=== PATIENT | female | born 1975 | race Caucasian/White ===

== ENCOUNTER 2017-04-24 00:49 | Emergency (ER) ==
[2017-04-24 00:56] VITALS: BP 136/82; TEMP 98.3; BMI 22.1
[2017-04-24 01:32] LABS: BASOPHILS # (AUTO) 0.1 K/uL (0-0.2); BASOPHILS % (AUTO) 0.9 % (0.0-3.0); EOSINOPHILS # (AUTO) 0.1 K/ul (0.0-0.7); EOSINOPHILS % (AUTO) 1.3 % (0.0-7.0); HEMATOCRIT 39.4 % (37.0-47.0); HEMOGLOBIN 14.3 g/dl (12.0-16.0); IMMATURE GRANULOCYTE % (AUTO) 0.4 % (0.0-5.0); LYMPHOCYTES # (AUTO) 3.6 K/uL (0.60-3.4); LYMPHOCYTES % (AUTO) 36.4 (10.0-50.0); MEAN CORPUSCULAR HEMOGLOBIN 31.7 pg (27.0-31.0); MEAN CORPUSCULAR HGB CONC 36.3 (31.8-35.4); MEAN CORPUSCULAR VOLUME 87.4 fl (81.0-99.0); MONOCYTES # (AUTO) 0.7 K/uL (0.4-2.0); MONOCYTES % (AUTO) 7.5 (0-10); NEUTROPHILS # (AUTO) 5.3 K/ul (2.0-6.9); NEUTROPHILS % (AUTO) 53.5; PLATELET COUNT 226 10^3/uL (140-440); RED BLOOD COUNT 4.51 10^6/ul (4.20-5.40); WHITE BLOOD COUNT 9.84 K/ul (4.6-10.2)
[2017-04-24 01:55] LABS: ACETAMINOPHEN 9 ug/ml (10-30); ALANINE AMINOTRANSFERASE 11 U/L (12-78); ALBUMIN 4.1 g/dL (3.4-5.0); ALBUMIN/GLOBULIN RATIO 1.28; ALKALINE PHOSPHATASE 83 U/L (42-98); ANION GAP 13.1; ASPARTATE AMINO TRANSFERASE 12 U/L (15-37); BILIRUBIN,TOTAL 0.27 mg/dL (0.00-1.20); BLOOD UREA NITROGEN 6 mg/dL (7-18); BUN/CREATININE RATIO 6.25; CALCIUM 9.5 mg/dL (8.2-10.2); CARBON DIOXIDE 27 mmol/L (21-32); CHLORIDE 100 mmol/L (98-107); CREATININE 0.96 mg/dL (0.60-1.30); GLUCOSE 109 mg/dL (70-110); POTASSIUM 3.1 mmol/L (3.5-5.10); SALICYLATE < 5.0 mg/dL (2.8-20.0); SODIUM 137 mmol/L (136-145); TOTAL PROTEIN 7.3 g/dL (6.4-8.2)
[2017-04-24] MEDS ORDERED: K-DUR PO STA (04:28)
--- NOTE | 2017-04-24 04:28 | ED.PDOC ---
General ED Provider: Dr. MARLIN MCNEIL-ER Chief Complaint: Psychiatric Complaint Stated Complaint: im stressed Time Seen by Physician: 00:55 Mode of Arrival: Walk-In Information Source: Patient, Family Exam Limitations: No limitations Primary Care Provider: ISABELLA LEAHY Nursing and Triage Documentation Reviewed and Agree: Yes Psychological Complaint Exam - Psychiatric Complaint/Exam Patient Complains Of: Present: Depression Onset/Duration: afew days Symptoms Are: Still present Timing: Constant Initial Severity: Mild Current Severity: Mild Character: Present: Depressed, Anxious, Angry, Frustrated Aggravating: Reports: Recent stress Associated Signs And Symptoms: Reports: Sleep disturbance. Denies: Appetite change Related History: Denies: Suicidal thoughts, Suicidal plan, Suicidal gestures, Homicidal thoughts, Homicidal plan Completed Suicide Risk Factors: Patient In Custody Of Police: No Social Withdrawal Present: No Social Isolation Present: No Prior Suicide Attempt: No Injury From Prior Suicide Attempt: No Related Surgical History: Reports: None Patient Uncooperative For Exam: No Mood: Present: Depressed, Angry, Anxious Appearance: Present: Clean Thought Process: Present: Logical Insight: Present: Good Memory: Intact Judgement: Normal Danger To Others: No Patient Medically Stable For: Psych evaluation Differential Diagnoses: Anxiety, Depression Review of Systems - Review Of Systems Constitutional: Reports: No symptoms Eyes: Reports: No symptoms Ears, Nose, Mouth, Throat: Reports: No symptoms Respiratory: Reports: No symptoms Cardiac: Reports: No symptoms GI: Reports: No symptoms : Reports: No symptoms Musculoskeletal: Reports: No symptoms Skin: Reports: No symptoms Neurological: Reports: Anxiety, Depressed, Emotional problems Endocrine: Reports: No symptoms Hematologic/Lymphatic: Reports: No symptoms All Other Systems: Reviewed and Negative Past Medical History - Past Medical History Previously Healthy: Yes Endocrine: Reports: Unknown Cardiovascular: Reports: Unknown Respiratory: Reports: Unknown Hematological: Reports: Unknown Gastrointestinal: Reports: Unknown Genitourinary: Reports: Unknown Neuro/Psych: Reports: Unknown Musculoskeletal: Reports: Unknown Cancer: Reports: Unknown Last Menstrual Period: CURRENT - Surgical History General Surgical History: Reports: Unknown - Family History Family History: Reports: Unknown - Social History Smoking Status: Current every day smoker, Heavy tobacco smoker Hx Substance Use: No Alcohol Screening: Occasionally - Immunizations Tetanus Shot up to Date: Yes Physical Exam - Physical Exam Appearance: Well-appearing, No pain distress, Well-nourished Eyes: PANFILO, EOMI, Conjunctiva clear ENT: Ears normal, Nose normal, Oropharynx normal Neck: Supple Respiratory: Airway patent, Breath sounds clear, Breath sounds equal, Respirations nonlabored Cardiovascular: RRR, Pulses normal, No rub, No murmur GI/: Soft Musculoskeletal: Normal strength Skin: Warm, Dry, Normal color Neurological: Alert, Oriented Psychiatric: Affect appropriate, Mood appropriate, Anxious, Depressed Critical Care Note - Critical Care Note Total Time (mins): 0 Course - Course Hematology/Chemistry: 04/24/17 01:29 04/24/17 01:29 Orders, Labs, Meds: Lab Review 04/24/17 04/24/17 04/24/17 01 01:29 01:29 WBC 9.84 RBC 4.51 Hgb 14.3 Hct 39.4 MCV 87.4 MCH 31.7 H MCHC 36.3 H RDW Coeff of Hailee 11.7 Plt Count 226 Immature Gran % (Auto) 0.4 Neut % (Auto) 53.5 Lymph % (Auto) 36.4 [place] % (Auto) 7.5 Eos % (Auto) 1.3 Baso % (Auto) 0.9 Immature Gran # (Auto) 0.0 Neut # 5.3 Lymph # 3.6 H [place] # 0.7 Eos # 0.1 Baso # 0.1 Sodium 137 Potassium 3.1 L Chloride 100 Carbon Dioxide 27 Anion Gap 13.1 BUN 6 L Creatinine 0.96 Estimated GFR (MDRD) 64.00 BUN/Creatinine Ratio 6.25 Glucose 109 Calcium 9.5 Total Bilirubin 0.27 AST 12 L ALT 11 L Alkaline Phosphatase 83 Total Protein 7.3 Albumin 4.1 Globulin 3.2 Albumin/Globulin Ratio 1.28 TSH 0.845 Salicylate Level mg/dL < 5.0 Acetaminophen 9 L Plasma/Serum Alcohol < 10.0 Orders Category Date Time Status Mental Health Consult [ED MENTAL HEALTH CONSULT] .ONCE EMERGENCY 04/24/17 01: 12 Active ACETAMINOPHEN Stat LAB 04/24/17 01:29 Completed CBC W/ AUTO DIFF Stat LAB 04/24/17 01:29 Completed COMPREHENSIVE METABOLIC PANEL Stat LAB 04/24/17 01:29 Completed DRUG SCREEN, URINE, RAPID Stat LAB 04/24/17 01:10 Uncollected ETOH LEVEL [BLOOD ALCOHOL] Stat LAB 04/24/17:29 Completed SALICYLATE Stat LAB 04/24/17 01:29 Completed TSH [THYROID STIMULATING HORMONE] Stat LAB 04/24/17 01:29 Completed URINALYSIS C & S IF INDICATED Stat LAB 04/24/17 01:10 Uncollected URINE Stat LAB 04/24/17 01:12 Uncollected Potassium Chloride [K-Dur] MEDS 04/24/17 04:28 Discontinued 40 meq PO ONCE STA Medications Discontinued Medications Generic Name Dose Route Start Last Admin Trade Name Tunde PRN Reason Stop Dose Admin Potassium Chloride 40 meq 04/24/17 04:28 04/24/17 05:28 K-Dur PO 04/24/17 04:29 40 meq ONCE STA Administration i concur with mental health--she is not suicidal--) Vital Signs: Temp Pulse Resp BP Pulse Ox 04/24/17 00:50 98.3 F 95 H 18 136/82 97 Departure - Departure Time of Disposition: 05:46 Disposition: HOME SELF-CARE Discharge Problem: Depression, Hypokalemia Instructions: Hypokalemia (ED) Condition: Good Pt referred to PMD for follow-up: Yes Additional Instructions: f/u with dr leahy is a few days to have potassium rechecked Allergies/Adverse Reactions: Allergies Sulfa (Sulfonamide Antibiotics) Adverse Reaction (Verified 04/24/17 00:57) sulfamethoxazole [From Bactrim] Adverse Reaction (Verified 04/24/17 00:57) trimethoprim [From Bactrim] Adverse Reaction (Verified 04/24/17 00:57) Home Medications: Ambulatory Orders 1 [No Reported Medications] 04/24/17 Disposition Discussed With: Patient Discharge Problem: Depression Qualifiers: Depression Type: major depressive disorder Major depression recurrence: single episode Active/Remission status: remission status unspecified Qualified Code(s) : F32.9 - Major depressive disorder, single episode, unspecified
== END 2017-04-24 05:45 | disposition home or self-care (01) ==
LOC: ED 00:49
DX: F32.9 Major depressive disorder, single episode, unspecified (principal); E87.6 Hypokalemia; F17.210 Nicotine dependence, cigarettes, uncomplicated
CPT/HCPCS: 36415; 80053; 80307; 84443; 85025; 99284

== ENCOUNTER 2017-06-12 16:36 | Emergency (ER) ==
[2017-06-12 16:37] VITALS: BMI 22.1
[2017-06-12 16:43] VITALS: TEMP 98.2
--- NOTE | 2017-06-12 18:59 | DI ---
EXAM: Chest, two views, 06/12/2017 HISTORY: Cough COMPARISON: 01/17/2012 FINDINGS / IMPRESSION: Bibasilar interstitial infiltrate, left greater than right. This may represe nt combination of atelectasis and/or pneumonia. The heart size remains within normal limits. Minimal blunting of the left lateral and posterior costophrenic angle. Small pleural effusion not ex cluded.
[2017-06-12] MEDS ORDERED: DECADRON 4 MG/ML SDV IM STA (20:04)
[2017-06-12] MEDS ORDERED: TORADOL IM STA (20:04)
--- NOTE | 2017-06-12 20:07 | ED.PDOC ---
General ED Provider: Dr. LAURA WINN Chief Complaint: Shortness of Air Stated Complaint: Came for the right side chest pain. since yesterday evening, hurts to breath. no injury Time Seen by Physician: 20:05 Mode of Arrival: Walk-In Information Source: Patient Primary Care Provider: ISABELLA REAVES Nursing and Triage Documentation Reviewed and Agree: Yes Reviewed sepsis parameters & appropriate labs ordered?: Yes System Inflammatory Response Syndrome: Not Applicable Sepsis Protocol: For patient's 13 years and over: Temp is 96.8 and below OR 101 and greater Pulse >90 BPM Resp >20/minute Acutely Altered Mental Status Are patient's symptoms suggestive of a new infection, such as: -Pneumonia -Skin, Soft Tissue -Endocarditis -UTI -Bone, Joint Infection -Implantable Device -Acute Abdominal Infection -Wound Infection -Meningitis -Blood Stream Catheter Infection -Unknown Cardiovascular Complaint Exam - Chest Pain Complaint/Exam Onset: Sudden Symptoms Are: Still present Timing: Constant Initial Severity: Moderate Current Severity: Moderate Location: Reports: Right anterior Pain Radiates: Reports: Back Character: Reports: Dull, Aching Aggravating: Reports: Movement, Deep breaths Alleviating: Reports: None Associated Signs and Symptoms: Denies: Diaphoresis, Nausea, Vomiting, Fever, Palpitations, Cough, Hemoptysis, Back pain, Abdominal pain, Dizziness, Short of air, Calf pain, Calf swelling Related Surgical History: Reports: None History of Healthcare-Acquired Pneumonia: Reports: No AMI/ACS Risk Factors: Reports: None TAD Risk Factors: Reports: None Pulmonary Embolism Risk Factors: Reports: None Recent Stress Test: No Recent Echo/LV Function: No JVD Present: No Subcutaneous Emphysema Present: No Diminshed Breath Sounds: No Reproducible Chest Wall Pain: Yes Bilateral Pulses Present: No Unequal Pulses Noted: No If Risk Factors for AMI/ACS Consider: EKG, Cardiac Enzymes, Serial Studies, Oxygen, Aspirin Differential Diagnoses: Chest Wall Pain Review of Systems - Review Of Systems Constitutional: Reports: Weakness Eyes: Reports: No symptoms Ears, Nose, Mouth, Throat: Reports: No symptoms Respiratory: Reports: Short of air Cardiac: Reports: Chest pain GI: Reports: No symptoms : Reports: No symptoms Musculoskeletal: Reports: No symptoms Skin: Reports: No symptoms Neurological: Reports: No symptoms Endocrine: Reports: No symptoms Hematologic/Lymphatic: Reports: No symptoms All Other Systems: Reviewed and Negative Past Medical History - Past Medical History Previously Healthy: Yes Endocrine: Reports: Unknown Cardiovascular: Reports: Unknown Respiratory: Reports: Unknown Hematological: Reports: Unknown Gastrointestinal: Reports: Unknown Genitourinary: Reports: Unknown Neuro/Psych: Reports: Unknown Musculoskeletal: Reports: Unknown Cancer: Reports: Unknown Last Menstrual Period: now - Surgical History General Surgical History: Reports: Unknown - Family History Family History: Reports: Unknown - Social History Smoking Status: Current every day smoker, Light tobacco smoker Smoking Cessation Counseling Time: > 3 min - 10 min Hx Substance Use: No Alcohol Screening: None Physical Exam - Physical Exam Appearance: Ill-appearing Eyes: PANFILO, EOMI, Conjunctiva clear ENT: Ears normal, Nose normal, Oropharynx normal Respiratory: Airway patent (rt upper chest tender to touch, worse with rt shoulder movements), Breath sounds clear, Breath sounds equal, Respirations nonlabored Cardiovascular: RRR, Pulses normal, No rub, No murmur GI/: Soft, Nontender, No masses, Bowel sounds normal, No Organomegaly Musculoskeletal: Normal strength, ROM intact, No edema, No calf tenderness Skin: Warm, Dry, Normal color Neurological: Sensation intact, Motor intact, Reflexes intact, Cranial nerves intact, Alert, Oriented Psychiatric: Affect appropriate, Mood appropriate Interpretation - Radiology Interpretation Radiology Interpretation By: Radiologist Radiology Results: Positive Exam Interpreted: CT Scan Critical Care Note - Critical Care Note Total Time (mins): 15 Course - Course Hematology/Chemistry: 06/12/17 17:21 06/12/17 17:21 Orders, Labs, Meds: Lab Review 06/12/17 06/12/17 06/12/17 17:09 17:13 17:21 WBC 7.58 RBC 3.94 L Hgb 12.4 Hct 35.6 L MCV 90.4 MCH 31.5 H MCHC 34.8 RDW Coeff of Hailee 12.2 Plt Count 317 Immature Gran % (Auto) 0.4 Neut % (Auto) 51.3 Lymph % (Auto) 33.0 [place] % (Auto) 11.6 H Eos % (Auto) 2.5 Baso % (Auto) 1.2 Immature Gran # (Auto) 0.0 Neut # 3.9 Lymph # 2.5 [place] # 0.9 Eos # 0.2 Baso # 0.1 D-Dimer (Manual) 1428.79 Sodium Potassium Chloride Carbon Dioxide Anion Gap BUN Creatinine Estimated GFR (MDRD) BUN/Creatinine Ratio Glucose Lactic Acid Calcium Total Bilirubin AST ALT Alkaline Phosphatase Total Creatine Kinase Troponin I Total Protein Albumin Globulin Albumin/Globulin Ratio Procalcitonin Serum , Qual Influenza A (Rapid) Negative by naat Influenza B (Rapid) Negative by naat 06/12/17 06/12/17 06/12/17 17:21 17:21 17:21 WBC RBC Hgb Hct MCV MCH MCHC RDW Coeff of Hailee Plt Count Immature Gran % (Auto) Neut % (Auto) Lymph % (Auto) [place] % (Auto) Eos % (Auto) Baso % (Auto) Immature Gran # (Auto) Neut # Lymph # [place] # Eos # Baso # D-Dimer (Manual) Sodium 134 L Potassium 3.4 L Chloride 102 Carbon Dioxide 22 Anion Gap 13.4 BUN 10 Creatinine 0.72 Estimated GFR (MDRD) 90.00 BUN/Creatinine Ratio 13.88 Glucose 132 H Lactic Acid 19.3 Calcium 8.8 Total Bilirubin 0.3 AST 38 H ALT 78 Alkaline Phosphatase 141 H Total Creatine Kinase 19 Troponin I < 0.0100 Total Protein 7.0 Albumin 3.0 L Globulin 4.0 Albumin/Globulin Ratio 0.75 Procalcitonin 0.06 Serum , Qual Influenza A (Rapid) Influenza B (Rapid) 06/12/17 17:21 WBC RBC Hgb Hct MCV MCH MCHC RDW Coeff of Hailee Plt Count Immature Gran % (Auto) Neut % (Auto) Lymph % (Auto) [place] % (Auto) Eos % (Auto) Baso % (Auto) Immature Gran # (Auto) Neut # Lymph # [place] # Eos # Baso # D-Dimer (Manual) Sodium Potassium Chloride Carbon Dioxide Anion Gap BUN Creatinine Estimated GFR (MDRD) BUN/Creatinine Ratio Glucose Lactic Acid Calcium Total Bilirubin AST ALT Alkaline Phosphatase Total Creatine Kinase Troponin I Total Protein Albumin Globulin Albumin/Globulin Ratio Procalcitonin Serum , Qual Negative Influenza A (Rapid) Influenza B (Rapid) Orders Category Date Time Status EKG-(ED ONLY) Stat CARDIO 06/12/17 17:03 Completed NPO REMINDER: IMAGING ONCE CARE 06/12/17 20:49 Completed ED IV/MEDIPORT/POWERPORT .ONCE EMERGENCY 06/12/17 17:03 Active ED IV/MEDIPORT/POWERPORT .ONCE EMERGENCY 06/12/17 20:49 Active BLOOD CULTURE Stat LAB 06/12/17 17:47 Received CBC W/ AUTO DIFF Stat LAB 06/12/17 17:21 Completed COMPREHENSIVE METABOLIC PANEL Stat LAB 06/12/17 17:21 Completed CREATINE KINASE Stat LAB 06/12/17 17:21 Completed D-DIMER Stat LAB 06/12/17 17:13 Completed LACTIC ACID Stat LAB 06/12/17 17:21 Completed MOLECULAR FLU A/B Stat LAB 06/12/17 17:09 Completed MOLECULAR GROUP A STREP Stat LAB 06/12/17 17:09 Completed PROCALCITONIN Stat LAB 06/12/17 17:21 Completed SERUM Stat LAB 06/12/17 17:21 Completed TROPONIN I Stat LAB 06/12/17 17:21 Completed 0.9 % Sodium Chloride [Saline Flush] MEDS 06/12/17 17:04 Ordered 1 syr IVF PRN PRN 0.9 % Sodium Chloride [Saline Flush] MEDS 06/12/17 20:49 Ordered 1 syr IVF PRN PRN Dexamethasone 4 mg/ml Inj [Decadron 4 mg/ml Sdv] MEDS 06/12/17 20:04 Discontinued 4 mg IM ONCE STA Ketorolac Tromethamine [Toradol] MEDS 06/12/17 20:04 Discontinued 30 mg IM ONCE STA Mag-Al Plus//Lidocaine [Gi Cocktail] MEDS 06/12/17 20:08 Discontinued 30 ml PO ONCE STA Sodium Chloride 0.9% [Sodium Chloride] 500 ml MEDS 06/12/17 20:49 Discontinued IV BOLUS CHEST, 2 VIEWS PA & LAT Stat RADS 06/12/17 18:[address] CHEST PE PROTOCOL Stat RADS 06/12/17 20:49 Completed Medications Generic Name Dose Route Start Last Admin Trade Name Freq PRN Reason Stop Dose Admin Sodium Chloride 1 syr 06/12/17 17:04 06/12/17 20:36 Saline Flush IVF 1 syr PRN PRN Administration To flush IV Sodium Chloride 1 syr 06/12/17 20:49 06/12/17 21:12 Saline Flush IVF 1 syr PRN PRN Administration To flush IV Discontinued Medications Generic Name Dose Route Start Last Admin Trade Name Freq PRN Reason Stop Dose Admin Al Hydroxide/Mg Hydroxide 30 ml 06/12/17 20:08 06/12/17 20:36 Gi Cocktail PO 06/12/17 20:09 30 ml ONCE STA Administration Dexamethasone Sodium Phosphate 4 mg 06/12/17 20:04 06/12/17 20:36 Decadron 4 Mg/Ml Sdv IM 06/12/17 20:05 4 mg ONCE STA Administration Sodium Chloride 500 mls @ 500 mls/hr 06/12/17 20:49 06/12/17 21:12 Sodium Chloride IV 06/12/17 21:48 500 mls/hr BOLUS STA Administration Ketorolac Tromethamine 30 mg 06/12/17 20:04 06/12/17 20:37 Toradol IM 06/12/17 20:05 30 mg ONCE STA Administration Vital Signs: Temp Pulse Resp BP Pulse Ox 06/12/17 16:37 98.2 F 109 H 22 114/75 95 NATALIE Risk Score NATALIE Risk Score: Risk Score Odds of by 30D 0 0.1 (0.1-0.2) 1 0.3 (0.2-0.3) 2 0.4 (0.3-0.5) 3 0.7 (0.6-0.9) 4 1.2 (1.0-1.5) 5 2.2 (1.9-2.6) 6 3.0 (2.5-3.6) 7 4.8 (3.8-6.1) Departure - Departure Time of Disposition: 23:27 Disposition: HOME SELF-CARE Discharge Problem: Pleurisy Instructions: Pleurisy (ED) Condition: Good Pt referred to PMD for follow-up: Yes Additional Instructions: Needs further evaluation by Layout Worker, because of the abnormal CT chest, and smoking history Discussed with patient advised to quite smoking. f/u with PMD in 3-4 days Prescriptions: Cephalexin [Keflex] 500 mg PO Q12HR #14 capsule Prednisone 10 mg PO BIDWM #14 tablet Allergies/Adverse Reactions: Allergies Sulfa (Sulfonamide Antibiotics) Adverse Reaction (Verified 06/12/17 16:43) sulfamethoxazole [From Bactrim] Adverse Reaction (Verified 06/12/17 16:43) trimethoprim [From Bactrim] Adverse Reaction (Verified 06/12/17 16:43) Home Medications: Ambulatory Orders Cephalexin [Keflex] 500 mg PO Q12HR #14 capsule 06/12/17 Prednisone 10 mg PO BIDWM #14 tablet 06/12/17 Disposition Discussed With: Patient, Family
[2017-06-12] MEDS ORDERED: GI COCKTAIL PO STA (20:08)
[2017-06-12] MEDS ORDERED: SODIUM CHLORIDE 500 ML IV STA (20:49)
--- NOTE | 2017-06-12 23:10 | CT ---
Exam: CT angiography of the chest History: Chest pain Technique: [address] of the chest utilizing CT angiography protocol. Multiplanar and thr ee-dimensional reformations were performed. FINDINGS: Technically adequate for evaluation of pulmonary arteries. The aorta is not well opacifie d. There are no pulmonary artery filling defects. The lung windows show innumerable bilateral pulmo nary nodules of maximal diameter about 7-8 mm. Bilateral hilar and mediastinal lymph node abundance. Atelectasis and trace left pleural fluid. No acute findings of the chest wall soft tissues or bony thorax. No acute findings of the upper abdomen. Impression: 1. No evidence of pulmonary artery thrombus 2. Lymphadenopathy and innumerable bilateral sub centimeter pulmonary nodules. Neoplastic favored ov er infectious etiology.
[2017-06-12 23:54] VITALS: BP 112/68
== END 2017-06-12 23:50 | disposition home or self-care (01) ==
LOC: ED 16:36
DX: R09.1 Pleurisy (principal); R91.8 Other nonspecific abnormal finding of lung field; R06.02 Shortness of breath; R07.89 Other chest pain; R53.1 Weakness; F17.200 Nicotine dependence, unspecified, uncomplicated
CPT/HCPCS: 36415; 80053; 82550; 83605; 84145; 84484; 84703; 85025; 85379; 87040; 87502; 87651; 93005; 93010; 96360; 96361; 96372; 96374; 99284

== ENCOUNTER 2018-02-10 18:27 | Emergency (ER) ==
[2018-02-10 18:31] VITALS: BP 124/87; TEMP 98.6; BMI 22.8
--- NOTE | 2018-02-10 18:39 | ED.PDOC ---
General ED Provider: Dr. REAL SOMERS Chief Complaint: Shoulder Pain/Injury Stated Complaint: RIGHT SHOULDER PAIN Time Seen by Physician: 18:33 (SEEN WITH SILVIA AT ALL TIMES ) Mode of Arrival: Walk-In Information Source: Patient Exam Limitations: No limitations Primary Care Provider: ISABELLA REAVES Referred to ED by: Other (HAD DEPO SHOT 1 DAY AGO) Nursing and Triage Documentation Reviewed and Agree: Yes Does patient meet sepsis criteria?: No System Inflammatory Response Syndrome: Not Applicable Sepsis Protocol: For patient's 13 years and over: Temp is 96.8 and below OR 101 and greater Pulse >90 BPM Resp >20/minute Acutely Altered Mental Status Are patient's symptoms suggestive of a new infection, such as: -Pneumonia -Skin, Soft Tissue -Endocarditis -UTI -Bone, Joint Infection -Implantable Device -Acute Abdominal Infection -Wound Infection -Meningitis -Blood Stream Catheter Infection -Unknown Musculoskeletal Complaint Exam - Shoulder Pain Complaint/Exam Mechanism of Injury: Reports: No known trauma Onset/Duration: TODAY Symptoms Are: Still present Timing: Constant Episodes Lasting: ALL DAY Initial Severity: Moderate Current Severity: Mild Location: Reports: Discrete Character: Reports: Aching, Throbbing, Spasmodic Alleviating: Reports: Rest Aggravating: Reports: Movement, Lifting, Flexion, Extension, Internal rotation, External rotation Associated Signs and Symptoms: Denies: Swelling, Redness, Bruising, Fever, Weakness, Numbness, Tingling Related History: Reports: Similar episode Non-Orthopedic Risk Factors: Reports: None DVT Risk Factors: Reports: None Septic Arthritis Risk Factors: Reports: None Related Surgical History: Reports: None Shoulder Findings: Absent: Swelling, Ecchymosis, Abnormal contour, Rotation, Ligamentous instability Tenderness: Present: Proximal humerus, Rotator cuff muscles. Absent: Clavicle, AC joint Limited Range of Motion: Present: Abduction, Adduction, Flexion, Extension, Internal rotation, External rotation, Rotator cuff muscles, Rotator cuff insertion Differential Diagnoses: AC Seperation, Rotator Cuff Injury Review of Systems - Review Of Systems Constitutional: Reports: No symptoms Eyes: Reports: No symptoms Ears, Nose, Mouth, Throat: Reports: No symptoms Respiratory: Reports: No symptoms Cardiac: Reports: No symptoms GI: Reports: No symptoms : Reports: No symptoms Musculoskeletal: Reports: Joint pain (RIGHT SHOULDER ) Skin: Reports: No symptoms Neurological: Reports: No symptoms Endocrine: Reports: No symptoms Hematologic/Lymphatic: Reports: No symptoms All Other Systems: Reviewed and Negative Past Medical History - Past Medical History Previously Healthy: Yes Endocrine: Reports: Unknown Cardiovascular: Reports: Unknown Respiratory: Reports: Unknown Hematological: Reports: Unknown Gastrointestinal: Reports: Unknown Genitourinary: Reports: Unknown Neuro/Psych: Reports: Unknown Musculoskeletal: Reports: Unknown Cancer: Reports: Unknown Last Menstrual Period: last /depo shot - Surgical History General Surgical History: Reports: Unknown - Family History Family History: Reports: Unknown - Social History Smoking Status: Current every day smoker, Heavy tobacco smoker Hx Substance Use: No Alcohol Screening: Occasionally Physical Exam - Physical Exam Appearance: Well-appearing, No pain distress, Well-nourished Eyes: PANFILO, EOMI, Conjunctiva clear ENT: Ears normal, Nose normal, Oropharynx normal Respiratory: Airway patent, Breath sounds clear, Breath sounds equal, Respirations nonlabored Cardiovascular: RRR, Pulses normal, No rub, No murmur GI/: Soft, Nontender, No masses, Bowel sounds normal, No Organomegaly Musculoskeletal: Limited ROM (RIGHT SHOULDER ) Skin: Warm, Dry, Normal color Neurological: Sensation intact, Motor intact, Reflexes intact, Cranial nerves intact, Alert, Oriented Psychiatric: Affect appropriate, Mood appropriate Critical Care Note - Critical Care Note Total Time (mins): 0 Course - Course Vital Signs: Temp Pulse Resp BP Pulse Ox 02/10/18 18:28 98.6 F 109 H 16 124/87 98 Departure - Departure Time of Disposition: 19:00 Disposition: HOME SELF-CARE Discharge Problem: Shoulder pain Instructions: Shoulder Sprain (ED), Arthralgia (ED), Rotator Cuff Injury (ED) Condition: Good Pt referred to PMD for follow-up: Yes IPMP verified?: No Additional Instructions: Please call your Family Physician as soon as possible to schedule a follow-up appointment. Prescriptions: Hydrocodone/Acetaminophen [[place] 10-325 Tablet] 1 each PO Q8HR #6 tablet Allergies/Adverse Reactions: Allergies Sulfa (Sulfonamide Antibiotics) Adverse Reaction (Verified 02/10/18 18:31) sulfamethoxazole [From Bactrim] Adverse Reaction (Verified 02/10/18 18:31) trimethoprim [From Bactrim] Adverse Reaction (Verified 02/10/18 18:31) Home Medications: Ambulatory Orders Hydrocodone/Acetaminophen [[place] 10-325 Tablet] 1 each PO Q8HR #6 tablet
--- NOTE | 2018-02-10 19:13 | DI ---
EXAM: Three views of the right shoulder HISTORY: Pop and unable to move arm. COMPARISON: CT chest 07/24/2017 FINDINGS: There is no cortical irregularity or displaced fracture of the right shoulder. There are c alcifications of the soft tissues adjacent to the humeral head likely representing calcified rotator cuff. The osseous structures are unremarkable. There is no lytic or blastic lesion. IMPRESSION: 1. No acute abnormality or displaced fracture of the right shoulder. 2. Calcifications adjacent to the humeral head suggestive of calcific tendinosis.
== END 2018-02-10 19:18 | disposition home or self-care (01) ==
LOC: ED 18:27
DX: M25.511 Pain in right shoulder (principal); F17.210 Nicotine dependence, cigarettes, uncomplicated
CPT/HCPCS: 99282

== ENCOUNTER 2018-06-23 12:41 | Emergency (ER) ==
[2018-06-23 12:46] VITALS: BP 109/71; TEMP 97.7; BMI 23.4
[2018-06-23] MEDS ORDERED: MORPHINE 4 MG/ML SYRINGE IVP STA ×2 (13:09→14:29)
[2018-06-23] MEDS ORDERED: ZOFRAN 4 MG/2 ML IVP STA (13:09)
[2018-06-23] MEDS ORDERED: SODIUM CHLORIDE 1,000 ML IV STA (13:09)
--- NOTE | 2018-06-23 14:03 | US ---
EXAM: Right upper quadrant abdominal ultrasound. History: Abdominal pain. Technique: Multiple sonographic images through the abdomen were obtained. Color duplex Doppler was used to interrogate vascular flow. Findings: The visualized pancreas demonstrates no abnormality. The liver is not enlarged. No liver lesions. There is antegrade flow within the main portal vein. Limited visualization of the right kidney demon strates no evidence for hydronephrosis. Cholelithiasis. Gallbladder wall is mildly thickened. Comm on bile duct measures 0.5 cm in caliber. Impression: Cholelithiasis and mild gallbladder wall thickening
--- NOTE | 2018-06-23 14:15 | CT ---
EXAM: CT of the abdomen pelvis without contrast History: Right upper and lower quadrant abdominal pain. Comparison: Abdominal ultrasound 06/23/2018 Technique: Multiplanar CT images through the abdomen pelvis were obtained without the administration of IV contrast Findings: Subsegmental atelectasis seen within the left lower lung. No acute osseous abnormalities. Cholelithiasis. No gallbladder wall thickening. No focal liver or splenic lesions. No renal stones and no hydronephrosis. The appendix is normal. No peripancreatic inflammation. Adrenal glands are unremarkable. No bowel obstruction. Moderate colonic stool. No bladder wall thickening. Adnexal structures appear appropriate for patient's age. No free air and no ascites. No perirectal inflamma tion. Mild atherosclerotic vascular calcifications Impression: 1. Cholelithiasis. 2. Normal appendix
--- NOTE | 2018-06-23 14:26 | ED.PDOC ---
General ED Provider: Dr. REAL SOMERS Chief Complaint: Abdominal Pain Stated Complaint: RUQ pain history of gall stone x 12 years negative trauma Time Seen by Physician: 13:00 (PAIN X 5 DAYS SEEN WITH STAFF ) Mode of Arrival: Walk-In Information Source: Patient Exam Limitations: No limitations Primary Care Provider: ISABELLA REAVES Nursing and Triage Documentation Reviewed and Agree: Yes Does patient meet sepsis criteria?: No System Inflammatory Response Syndrome: Not Applicable Sepsis Protocol: For patient's 13 years and over: Temp is 96.8 and below OR 101 and greater Pulse >90 BPM Resp >20/minute Acutely Altered Mental Status Are patient's symptoms suggestive of a new infection, such as: -Pneumonia -Skin, Soft Tissue -Endocarditis -UTI -Bone, Joint Infection -Implantable Device -Acute Abdominal Infection -Wound Infection -Meningitis -Blood Stream Catheter Infection -Unknown GI Complaint Exam - Abdominal Pain Complaint/Exam Onset: Gradual Duration: RUQ PAIN X 5 DAYS WORSE TODAY Symptoms Are: Still present Timing: Intermittent Initial Severity: Moderate Current Severity: Moderate Location of Pain: RUQ Radiates To: Denies: Chest, Back, Flank, LLQ, RLQ, Inguinal Character: Reports: Cramping Aggravating: Reports: None Alleviating: Reports: None Associated Signs and Symptoms: Reports: Decreased appetite (LAST MEAL 1 DAY AGO) Related History: Reports: Similar episode (GALL STONE) AAA Risk Factors: Reports: None, Smoking Cardiac Risk Factors: Reports: Smoking Ectopic Risk Factors: Reports: None Ovarian Torsion Risk Factors: Reports: None Surgical Obstruction Risk Factors: Reports: None Related Surgical History: Reports: None Patient Rh Status: Unknown Abdominal Findings: Present: None Differential Diagnoses: Bowel Obstruction, Diverticulitis, GB Quality Indicator For Non-Traumatic Chest Pain/Syncope: EKG Performed Review of Systems - Review Of Systems Constitutional: Reports: No symptoms Eyes: Reports: No symptoms Ears, Nose, Mouth, Throat: Reports: No symptoms Respiratory: Reports: No symptoms Cardiac: Reports: No symptoms GI: Reports: Abdominal pain (RQU LAST MEAL 1 DAY AGO LAST BM TODAY) : Reports: No symptoms Musculoskeletal: Reports: No symptoms Skin: Reports: No symptoms Neurological: Reports: No symptoms Endocrine: Reports: No symptoms Hematologic/Lymphatic: Reports: No symptoms All Other Systems: Reviewed and Negative Past Medical History - Past Medical History Previously Healthy: Yes Endocrine: Reports: Unknown Cardiovascular: Reports: Unknown Respiratory: Reports: Unknown Hematological: Reports: Unknown Gastrointestinal: Reports: Unknown Genitourinary: Reports: Unknown Neuro/Psych: Reports: Unknown Musculoskeletal: Reports: Unknown Cancer: Reports: Unknown Last Menstrual Period: now - Surgical History General Surgical History: Reports: Unknown - Family History Family History: Reports: Unknown - Social History Smoking Status: Current every day smoker, Heavy tobacco smoker Hx Substance Use: No Alcohol Screening: Occasionally Physical Exam - Physical Exam Appearance: Ill-appearing Ill-appearing: Mild Pain Distress: Moderate Eyes: PANFILO, EOMI, Conjunctiva clear ENT: Ears normal, Nose normal, Oropharynx normal Respiratory: Airway patent, Breath sounds clear, Breath sounds equal, Respirations nonlabored Cardiovascular: RRR, Pulses normal, No rub, No murmur GI/: No masses, No Organomegaly, Tender (RUQ ), Bowel sounds hypoactive Musculoskeletal: Normal strength, ROM intact, No edema, No calf tenderness Skin: Warm, Dry, Normal color Neurological: Sensation intact, Motor intact, Reflexes intact, Cranial nerves intact, Alert, Oriented Psychiatric: Affect appropriate, Mood appropriate Interpretation - Radiology Interpretation Radiology Interpretation By: Radiologist Radiology Results: Positive (GALL STONE CONTRACTED GALL BLADDER) Re-Evaluation - Re-Evaluation Time of Re-Evaluation: 14:29 Status: Improved Vital Signs Stable: Yes Pain Level: 2/10 Appearance: NAD Lungs: Clear Skin: Warm and Dry Neuro: Alert and Oriented X3 CV: RRR Additional Comments: GALL STONE AND LABS DISCUSSED Critical Care Note - Critical Care Note Total Time (mins): 0 Course - Course Hematology/Chemistry: 06/23/18 13:10 06/23/18 13:10 Orders, Labs, Meds: Lab Review 06/23/18 06/23/18 06/23/18 13:10 13:10 13:30 WBC 8.26 RBC 4.37 Hgb 13.4 Hct 39.0 MCV 89.2 MCH 30.7 MCHC 34.4 RDW Coeff of Hailee 11.9 Plt Count 233 Immature Gran % (Auto) 0.2 Neut % (Auto) 80.3 Lymph % (Auto) 12.0 [place] % (Auto) 6.5 Eos % (Auto) 0.6 Baso % (Auto) 0.4 Immature Gran # (Auto) 0.0 Neut # (Auto) 6.6 Lymph # (Auto) 1.0 [place] # (Auto) 0.5 Eos # (Auto) 0.1 Baso # (Auto) 0.0 Sodium 134.3 L Potassium 3.65 Chloride 103.1 Carbon Dioxide 23.5 Anion Gap 11.35 BUN 8.9 Creatinine 0.71 Estimated GFR (MDRD) 91.00 BUN/Creatinine Ratio 12.53 Glucose 101.1 Lactic Acid 0.80 Calcium 9.03 Total Bilirubin 0.29 AST 22.8 ALT 14.1 Alkaline Phosphatase 93.6 Total Protein 7.90 Albumin 4.36 Globulin 3.54 Albumin/Globulin Ratio 1.23 Amylase 61.5 Lipase 39.9 Orders Category Date Time Status NPO REMINDER: IMAGING ONCE CARE 06/23/18 13:06 Active ED IV/MEDIPORT/POWERPORT .ONCE EMERGENCY 06/23/18 13:09 Active AMYLASE Stat LAB 06/23/18 13:04 Ordered BLOOD CULTURE (ED ONLY) Stat LAB 06/23/18 13:10 Ordered CBC W/ AUTO DIFF Stat LAB 06/23/18 13:04 Ordered COMPREHENSIVE METABOLIC PANEL Stat LAB 06/23/18 13:04 Ordered LACTIC ACID Stat LAB 06/23/18 13:10 Ordered LIPASE Stat LAB 06/23/18 13:04 Ordered PROCALCITONIN Stat LAB 06/23/18 13:10 Ordered URINALYSIS C & S IF INDICATED Stat LAB 06/23/18 13:05 Uncollected 0.9 % Sodium Chloride [Saline Flush] MEDS 06/23/18 13:09 Ordered 1 syr IVF PRN PRN Morphine Sulfate [Morphine 4 mg/ml Syringe] MEDS 06/23/18 13:09 Discontinued 4 mg IVP ONCE STA Ondansetron HCl/Pf [Zofran 4 mg/2 ml] MEDS 06/23/18 13:09 Discontinued 4 mg IVP ONCE STA Sodium Chloride 0.9% [Sodium Chloride] 1,000 ml MEDS 06/23/18 13:[address] ABD/PEL WO RENAL STONE PROT Stat RADS 06/23/18 13:05 Ordered ULTRASOUND ABDOMEN, RT. UPPER QUAD [U/S ABDOMEN RT RADS 06/23/18 13:05 Ordered UPPER QUAD] Stat Medications Generic Name Dose Route Start Last Admin Trade Name Freq PRN Reason Stop Dose Admin Sodium Chloride 1 syr 06/23/18 13:09 06/23/18 13:33 Saline Flush IVF 1 syr PRN PRN Administration To flush IV Discontinued Medications Generic Name Dose Route Start Last Admin Trade Name Tunde PRN Reason Stop Dose Admin Sodium Chloride 1,000 mls @ 1,000 mls/hr 06/23/18 13:09 06/23/18 13:33 Sodium Chloride IV 06/23/18 14:08 1,000 mls/hr BOLUS STA Administration Morphine Sulfate 4 mg 06/23/18 13:09 06/23/18 13:38 Morphine 4 Mg/Ml Syringe IVP 06/23/18 13:10 4 mg ONCE STA Administration Ondansetron HCl 4 mg 06/23/18 13:09 06/23/18 13:34 Zofran 4 Mg/2 Ml IVP 06/23/18 13:10 4 mg ONCE STA Administration Vital Signs: Temp Pulse Resp BP Pulse Ox 06/23/18 12:44 97.7 F 112 H 18 109/71 97 Departure - Departure Time of Disposition: 14:29 Disposition: HOME SELF-CARE Discharge Problem: Abdominal pain Gall stone Qualifiers: Cholecystitis presence: without cholecystitis Biliary obstruction: without biliary obstruction Qualified Code(s): K80.20 - Calculus of gallbladder without cholecystitis without obstruction Instructions: Gallstones (ED), Biliary Colic (ED) Condition: Good Pt referred to PMD for follow-up: Yes IPMP verified?: No Additional Instructions: Please call your Family Physician as soon as possible to schedule a follow-up appointment.YOU HAVE GALL BLADDER WHICH HAS STONE CERTAIN FOODS LIKE FATTY FOODS CAN MAKE YOUR GALL BLADDER CONTRACT AGAINST THE STONE WHICH IS WITH IN IT. YOUR BLOOD WORK IS NORMAL AT THIS TIME. YOU MUST CONTACT YOUR MD FOR SURGICAL CONSULTATION AND FURTHER CARE OF THE GALL STONE. GALL PLUS WITH THE INCREASING OF THE SYMPTOMS FOR EXAMPLE YELLOWING OF SKIN , EYES , MEANS WORSENING OF THIS CONDITION. IF YOU HAVE FEVER, IT CAN MEAN POSSIBLE INFECTION WHICH IN THE SETTING OF GALL STONE IS A VERY BAD ISSUE MUST GET PROMPT EVALUATION. Allergies/Adverse Reactions: Allergies Sulfa (Sulfonamide Antibiotics) Adverse Reaction (Verified 06/23/18 12:46) sulfamethoxazole [From Bactrim] Adverse Reaction (Verified 06/23/18 12:46) trimethoprim [From Bactrim] Adverse Reaction (Verified 06/23/18 12:46) Home Medications: Ambulatory Orders Hydrocodone/Acetaminophen [Holly 10-325 Tablet] 1 each PO Q8HR #12 tablet Disposition Discussed With: Patient, Family
== END 2018-06-23 15:02 | disposition home or self-care (01) ==
LOC: ED 12:41
DX: K80.20 Calculus of gallbladder without cholecystitis without obstruction (principal); F17.210 Nicotine dependence, cigarettes, uncomplicated
CPT/HCPCS: 36415; 74176; 80053; 82150; 83605; 83690; 84145; 85025; 87040; 93005; 93010; 96361; 96374; 96375; 96376; 99283

== ENCOUNTER 2018-07-02 15:36 | Emergency (ER) ==
[2018-07-02 15:41] VITALS: BP 111/75; TEMP 98.1; BMI 23.7
[2018-07-02] MEDS ORDERED: MORPHINE 4 MG/ML SYRINGE IVP STA (16:17)
[2018-07-02] MEDS ORDERED: ZOFRAN 4 MG/2 ML IVP STA (16:18)
--- NOTE | 2018-07-02 17:38 | DI ---
EXAM: Two-view chest HISTORY: Cough COMPARISON: Two-view chest 06/12/2017 FINDINGS: The cardiac silhouette is normal in size. Atherosclerotic changes are seen involving the aortic arch... There is minimal subsegmental atelectasis at the right lung base with minimal bluntin g of the right lateral costophrenic angle. IMPRESSION: Minimal atelectasis right lung base with minimal blunting of the right lateral costophrenic angle
--- NOTE | 2018-07-02 19:30 | CT ---
EXAM: Noncontrast CT of the abdomen and pelvis HISTORY: Pain COMPARISON: 06/23/2018 TECHNIQUE: Axial noncontrast CT of the abdomen and pelvis with sagittal and coronal reformats. FINDINGS: Multiple stable bibasilar subcentimeter pulmonary nodules are identified. Noncontrast technique limits evaluation. Streak artifacts extend through the abdomen due to imaging with the patient's arms at her sides. The unenhanced liver, gallbladder, adrenals, kidneys and pancr eas appear unremarkable. There has been interval cholecystectomy. The stomach appears within normal limits. No abnormal small bowel dilation is seen. A large amount of stool is seen within the cecum and proximal transverse colon. A moderate of stool is seen at the splenic flexure. The visualized portions of the appendix are not abnormally enlarged. No free air is seen. Mild hyperdense fluid is seen anterior to the left hepatic lobe. This is best visualized on sagittal images 45 through 59. There is minimal fat stranding of the overlying subcuta neous soft tissues in this region. No definite free fluid is seen elsewhere within the abdomen. Mild atherosclerotic calcifications are identified. IMPRESSION: Mild hyperdense fluid anterior to the left hepatic lobe compatible with hematoma. Finding was discus sed with Dr. Branham at 1922 hours on 07/02/2018. Status post interval cholecystectomy. Large cecal through mid transverse colonic stool burden. Noncontrast exam.
--- NOTE | 2018-07-02 19:42 | ED.PDOC ---
General ED Provider: Dr. REAL SOMERS Chief Complaint: Abdominal Pain Stated Complaint: RUQ ABDOMINAL X2 DAYS ACUTELY WORSE P.T.A NEGATIVE TRAUMA Time Seen by Physician: 15:40 (SEEN WITH PT'S NURSE AT ALL TIME ) Mode of Arrival: Wheelchair Information Source: Patient Exam Limitations: No limitations Primary Care Provider: ISABELLA REAVES Nursing and Triage Documentation Reviewed and Agree: Yes Does patient meet sepsis criteria?: No System Inflammatory Response Syndrome: Not Applicable Sepsis Protocol: For patient's 13 years and over: Temp is 96.8 and below OR 101 and greater Pulse >90 BPM Resp >20/minute Acutely Altered Mental Status Are patient's symptoms suggestive of a new infection, such as: -Pneumonia -Skin, Soft Tissue -Endocarditis -UTI -Bone, Joint Infection -Implantable Device -Acute Abdominal Infection -Wound Infection -Meningitis -Blood Stream Catheter Infection -Unknown GI Complaint Exam - Abdominal Pain Complaint/Exam Onset: Gradual Duration: 2 DAYS Symptoms Are: Resolved Initial Severity: Severe Current Severity: None Location of Pain: RUQ Radiates To: Denies: Chest, Back, Flank, LLQ, RLQ, Inguinal Character: Reports: Cramping Aggravating: Reports: None Alleviating: Reports: Medication (MORPHINE) Associated Signs and Symptoms: Denies: Diaphoresis, Fever, Cough, Chest pain, Dizziness, Back pain, Constipation, Blood in stool, Dysuria, Urinary frequency, Decreased urine output, Decreased appetite, Vaginal bleeding, Vaginal discharge , Nausea, Vomiting, Diarrhea, Sore throat, Decreased activity AAA Risk Factors: Reports: None Cardiac Risk Factors: Reports: None Ectopic Risk Factors: Reports: None Ovarian Torsion Risk Factors: Reports: None Surgical Obstruction Risk Factors: Reports: None Related Surgical History: Reports: None Patient Rh Status: Unknown Review of Systems - Review Of Systems Constitutional: Reports: No symptoms Eyes: Reports: No symptoms Ears, Nose, Mouth, Throat: Reports: No symptoms Respiratory: Reports: No symptoms Cardiac: Reports: No symptoms GI: Reports: Abdominal pain : Reports: No symptoms Musculoskeletal: Reports: No symptoms Skin: Reports: No symptoms Neurological: Reports: No symptoms Endocrine: Reports: No symptoms Hematologic/Lymphatic: Reports: No symptoms All Other Systems: Reviewed and Negative Past Medical History - Past Medical History Previously Healthy: Yes Endocrine: Reports: Unknown Cardiovascular: Reports: Unknown Respiratory: Reports: Unknown Hematological: Reports: Unknown Gastrointestinal: Reports: Unknown Genitourinary: Reports: Unknown Neuro/Psych: Reports: Unknown Musculoskeletal: Reports: Unknown Cancer: Reports: Unknown Last Menstrual Period: 2 weeks ago - Surgical History General Surgical History: Reports: Unknown - Family History Family History: Reports: Unknown - Social History Smoking Status: Current every day smoker, Heavy tobacco smoker Hx Substance Use: No Alcohol Screening: Occasionally Physical Exam - Physical Exam Appearance: Well-appearing, No pain distress, Well-nourished Eyes: PANFILO, EOMI, Conjunctiva clear ENT: Ears normal, Nose normal, Oropharynx normal Respiratory: Airway patent, Breath sounds clear, Breath sounds equal, Respirations nonlabored Cardiovascular: RRR, Pulses normal, No rub, No murmur GI/: Tender (RUQ PAIN ) Musculoskeletal: Normal strength, ROM intact, No edema, No calf tenderness Skin: Warm, Dry, Normal color Neurological: Sensation intact, Motor intact, Reflexes intact, Cranial nerves intact, Alert, Oriented Psychiatric: Affect appropriate, Mood appropriate Interpretation - Radiology Interpretation Radiology Interpretation By: Radiologist Radiology Results: Positive (MILD HYPERDENSE FLUID ANTERIOR TO LEFT HEPATIC LOBE COMPATIBLE WITH HEMATOMA) Re-Evaluation - Re-Evaluation Time of Re-Evaluation: 17:30 Status: Improved Vital Signs Stable: Yes Pain Level: 0 Appearance: NAD Lungs: Clear Skin: Warm and Dry Neuro: Alert and Oriented X3 CV: RRR - Re-Evaluation Time of Re-Evaluation: 19:44 Status: Improved Vital Signs Stable: Yes Pain Level: 0 Appearance: NAD Skin: Warm and Dry Neuro: Alert and Oriented X3 CV: RRR Physician Notification - Case Discussed Physician Notified: DOMINGO SHIN Time of Notification: 20:03 (COVERING FOR ASCENCION SHIN , CT REPORT DISCUSEED . DOMINGO SHIN STATED PT MAY GO HOME AND RETURN IF PAIN , FEVER OR SICKER MUST GO STRAIGHT TO [facility]) Critical Care Note - Critical Care Note Total Time (mins): 0 Course - Course Hematology/Chemistry: 07/02/18 16:23 07/02/18 16:23 Orders, Labs, Meds: Lab Review 07/02/18 07/02/18 07/02/18 16:23 16:23 16:23 WBC 12.01 H RBC 3.66 L Hgb 11.2 L Hct 32.8 L MCV 89.6 MCH 30.6 MCHC 34.1 RDW Coeff of Hailee 11.9 Plt Count 384 Immature Gran % (Auto) 0.5 Neut % (Auto) 77.4 Lymph % (Auto) 13.7 [place] % (Auto) 7.1 Eos % (Auto) 1.1 Baso % (Auto) 0.2 Immature Gran # (Auto) 0.1 Neut # (Auto) 9.3 H Lymph # (Auto) 1.6 [place] # (Auto) 0.9 Eos # (Auto) 0.1 Baso # (Auto) 0.0 Sodium 133.5 L Potassium 4.15 Chloride 100.0 Carbon Dioxide 25.1 Anion Gap 12.55 BUN 11.2 Creatinine 0.68 Estimated GFR (MDRD) 95.00 BUN/Creatinine Ratio 16.47 Glucose 101.4 Calcium 9.29 Total Bilirubin 0.35 AST 24.5 ALT 19.0 Alkaline Phosphatase 91.0 Total Protein 7.66 Albumin 4.06 Globulin 3.60 Albumin/Globulin Ratio 1.12 Amylase 55.4 Lipase 26.6 Serum , Qual Negative Influ A Molecular Assay Influ B Molecular Assay 07/02/18 17:03 WBC RBC Hgb Hct MCV MCH MCHC RDW Coeff of Hailee Plt Count Immature Gran % (Auto) Neut % (Auto) Lymph % (Auto) [place] % (Auto) Eos % (Auto) Baso % (Auto) Immature Gran # (Auto) Neut # (Auto) Lymph # (Auto) [place] # (Auto) Eos # (Auto) Baso # (Auto) Sodium Potassium Chloride Carbon Dioxide Anion Gap BUN Creatinine Estimated GFR (MDRD) BUN/Creatinine Ratio Glucose Calcium Total Bilirubin AST ALT Alkaline Phosphatase Total Protein Albumin Globulin Albumin/Globulin Ratio Amylase Lipase Serum , Qual Influ A Molecular Assay Negative by naat Influ B Molecular Assay Negative by naat Orders Category Date Time Status ED IV/MEDIPORT/POWERPORT .ONCE EMERGENCY 07/02/18 16:17 Active AMYLASE Stat LAB 07/02/18 16:23 Completed CBC W/ AUTO DIFF Stat LAB 07/02/18 16:23 Completed COMPREHENSIVE METABOLIC PANEL Stat LAB 07/02/18 16:23 Completed FLU A/B MOLECULAR Stat LAB 07/02/18 17:03 Completed LIPASE Stat LAB 07/02/18 16:23 Completed MOLECULAR GROUP A STREP Stat LAB 07/02/18 17:03 Completed SERUM Stat LAB 07/02/18 16:23 Completed URINALYSIS C & S IF INDICATED Stat LAB 07/02/18 16:13 Uncollected 0.9 % Sodium Chloride [Saline Flush] MEDS 07/02/18 16:17 Active 1 syr IVF PRN PRN Morphine Sulfate [Morphine 4 mg/ml Syringe] MEDS 07/02/18 16:17 Discontinued 4 mg IVP ONCE STA Ondansetron HCl/Pf [Zofran 4 mg/2 ml] MEDS 07/02/18 16:18 Discontinued 4 mg IVP ONCE STA CHEST, 2 VIEWS PA & LAT Stat RADS 07/02/18 16:[address] ABDOMEN/PELVIS WO CONTRAST Stat RADS 07/02/18 18:47 Completed Medications Generic Name Dose Route Start Last Admin Trade Name Freq PRN Reason Stop Dose Admin Sodium Chloride 1 syr 07/02/18 16:17 07/02/18 16:58 Saline Flush IVF 1 syr PRN PRN Administration To flush IV Discontinued Medications Generic Name Dose Route Start Last Admin Trade Name Freq PRN Reason Stop Dose Admin Morphine Sulfate 4 mg 07/02/18 16:17 07/02/18 16:58 Morphine 4 Mg/Ml Syringe IVP 07/02/18 16:18 4 mg ONCE STA Administration Ondansetron HCl 4 mg 07/02/18 16:18 07/02/18 16:56 Zofran 4 Mg/2 Ml IVP 07/02/18 16:19 4 mg ONCE STA Administration Vital Signs: Temp Pulse Resp BP Pulse Ox 07/02/18 15:37 98.1 F 112 H 20 111/75 96 Departure - Departure Time of Disposition: 20:03 Disposition: TSF SHORT-TRM HOSP Discharge Problem: Abdominal pain Instructions: Acute Abdominal Pain (DC) Condition: Good Pt referred to PMD for follow-up: Yes IPMP verified?: No Additional Instructions: Please call your Family Physician as soon as possible to schedule a follow-up appointment. I SPOKE TO DOCTOR DOMINGO DEE FOR YOUR SURGEON. THE BUTTON SEW[employer] SURGEON WAS TOLD YOU HAVE A SMALL BLOOD COLECTION IN YOUR UPPER ABDOMEN. MY INSTRUCTIONS VIA HIM IS 1)PROVIDE PAIN MEDS 2) ASK PT TO FOLLOW UP PREVIOUSLY NOTED 3)IF PAIN OR FEVER NOTED MUST GO TO [facility] WHERE DOMINGO SHIN IS PRESENTLY WORKING THIS WEEKEND. Allergies/Adverse Reactions: Allergies Sulfa (Sulfonamide Antibiotics) Adverse Reaction (Verified 07/02/18 15:42) sulfamethoxazole [From Bactrim] Adverse Reaction (Verified 07/02/18 15:42) trimethoprim [From Bactrim] Adverse Reaction (Verified 07/02/18 15:42) Home Medications: Ambulatory Orders Hydrocodone/Acetaminophen [Manson 10-325 Tablet] 1 each PO Q8HR #12 tablet Disposition Discussed With: Patient
== END 2018-07-02 20:20 | disposition home or self-care (01) ==
LOC: ED 15:36
DX: R10.11 Right upper quadrant pain (principal); K91.870 Postprocedural hematoma of a digestive system organ or structure following a digestive system procedure; F17.210 Nicotine dependence, cigarettes, uncomplicated
CPT/HCPCS: 36415; 80053; 82150; 83690; 84703; 85025; 87502; 87651; 96375; 99283